=== PATIENT | female | born 1995 | race Caucasian/White ===

== ENCOUNTER 2021-05-12 21:35 | Emergency (ER) | payer SELFPAY ==
[~2021-05-12] VITALS: Ht 157.5 cm; Wt 77.1 kg
[2021-05-12] MEDS ORDERED: MORPHINE SULFATE 4 MG/1 ML DISP.SYRIN IM ONE (22:30)
[2021-05-12] MEDS ORDERED: MORPHINE SULFATE 4 MG/1 ML DISP.SYRIN ONE (22:38)
[2021-05-12] MEDS ORDERED: MORPHINE SULFATE 2 MG/1 ML DISP.SYRIN ONE (22:38)
[2021-05-12 22:39] LABS: *URINE HCG, QUAL NEGATIVE (NEGATIVE)
[2021-05-12] MEDS ORDERED: LORAZEPAM 2 MG/1 ML VIAL IM ONE (22:45)
[2021-05-12] MEDS ORDERED: LORAZEPAM 2 MG/1 ML VIAL ONE (22:56)
[2021-05-12] MEDS ORDERED: FENTANYL CITRATE 100 MCG/2 ML AMPUL IM ONE (23:30)
[2021-05-12] MEDS ORDERED: FENTANYL CITRATE 100 MCG/2 ML AMPUL ONE (23:35)
--- NOTE | 2021-05-13 00:30 | NUR ---
Placed knee immobilizer on left knee as Dr Cordero ordered.
[2021-05-13] MEDS ORDERED: IBUP-1955 PO (00:52)
--- NOTE | 2021-05-13 01:17 | NUR ---
Patient discharged to home in stable condition. Written and verbal after care instructions given. Patient verbalizes understanding of instructions. Stressed follow up or return to ER for worsening s/s.
[2021-05-13 01:18] VITALS: BP 135/88
== END 2021-05-13 01:19 | disposition home or self-care (01) ==
LOC: ER 21:37
DX: M25.562 Pain in left knee (principal); Z98.890 Other specified postprocedural states
CPT/HCPCS: 29505; 73564; 84703; 96372 ×2; 99284; J2060; J2270 ×2; J3010; A4663